=== PATIENT | male | born 1975 | race Caucasian/White ===

== ENCOUNTER → 2017-04-22 | Outpatient (CLI) | payer OTHER ==
[~2017-04-22] MED LIST: PRLSR20 PO
[2017-04-22 16:57] LABS: BLOOD UREA NITROGEN 8 mg/dl (7-18); CALCIUM 9.1 mg/dl (8.5-10.1); CARBON DIOXIDE 26 mmol/L (21-32); CREATININE 0.64 mg/dl (0.60-1.40); GLUCOSE 323 mg/dl (70-99); POTASSIUM 3.6 mmol/L (3.5-5.1); SODIUM 132 mmol/L (136-145)
[2017-04-22 16:59] LABS: CHOLESTEROL 235 mg/dl (0-200)
[2017-04-22 17:07] LABS: LDL CHOLESTEROL CALCULATED 125 mg/dl
[2017-04-23 05:53] LABS: HEMOGLOBIN A1C 12.6 % (4.5-5.6)
== END | disposition home or self-care (01) ==
LOC: C.LABBFT 12:02
PROVIDERS: ATTEND Nurse Practitioner
DX: Z13.6 Encounter for screening for cardiovascular disorders (principal); R73.03 Prediabetes; Z13.228 Encounter for screening for other metabolic disorders